=== PATIENT | male | born 1960 | race Caucasian/White ===

== ENCOUNTER 2017-08-12 20:25 | Emergency (ER) | payer MEDICARE, SELFPAY ==
[2017-08-12 20:27] VITALS: BP 152/76; PULSE 93; RESP 18; TEMP 36.8; O2SAT 96; BMI 35.3
--- NOTE | 2017-08-12 21:56 | ED.VISSUMM ---
- ER Visit Summary Date of Service: 08/12/17 Chief Complaint: Gastrostomy tube fell out History of Present Illness: The patient is a 56 M who presents because gastrostomy tube fell out. He is uncertain when it fell out. He noticed it was out when he awoke. He has been waiting approximately an hour in the waiting room prior to being seen. He has no complaints. Physical Examination: Patient's ostomy site is closing. [employer] Lecturer obtained a 20 [place]ian gastric ostomy BRAD tube and urethral sounds. Lungs are clear to auscultation. Heart is regular. Abdomen soft nontender. Test Results: None Emergency Department Course and Treatment: The opening was dilated with urethral sounds. A 20 Guamanian BRAD tube was placed. Treatment Plan: Discharged home with appropriate home-going instructions Disposition: Discharge to home Impression: Placement of BRAD gastrostomy tube This note was generated with [employer] dictation software. It may contain incorrect words, spelling, and punctuation that were not noted in review of the chart prior to signing ED Disposition - Plan for ED Patient: Chief Complaint: Other, Pain/Inj Instructions: ED G Tube Replacement Referrals: [facility] Doctor,Out of [Primary Care Provider] - As Needed
== END 2017-08-12 22:29 | disposition home or self-care (01) ==
PROVIDERS: Emergency Provider Emergency Medicine
DX: Z43.1 Encounter for attention to gastrostomy (principal); K21.9 Gastro-esophageal reflux disease without esophagitis; E78.00 Pure hypercholesterolemia, unspecified; E03.9 Hypothyroidism, unspecified; E66.9 Obesity, unspecified; Z68.35 Body mass index [BMI] 35.0-35.9, adult; Z79.82 Long term (current) use of aspirin; Z79.899 Other long term (current) drug therapy; Z87.891 Personal history of nicotine dependence
CPT/HCPCS: 43760; 99282; A4216

== ENCOUNTER 2021-07-22 16:37 | Emergency (ER) | payer SELFPAY ==
[2021-07-22 16:40] VITALS: BP 96/61; PULSE 105; RESP 18; TEMP 36.6; O2SAT 91; BMI 26.2
[2021-07-22 16:43] VITALS: BP 96/61; PULSE 105; RESP 18; TEMP 36.6; O2SAT 91
--- NOTE | 2021-07-22 18:04 | RAD_ITS ---
EXAM: XR ABDOMEN, 1 VIEW CLINICAL INDICATION: PEG placement -- with gastrographin TECHNIQUE: Frontal supine view of the abdomen/pelvis. This report was created using [employer] report generation technology. COMPARISON: 09.27.16 FINDINGS: LOWER THORAX: No acute pathology. GASTROINTESTINAL TRACT: Unremarkable. Non-obstructive. No bowel or stomach distention. ORGANS: Unremarkable as visualized. No organomegaly. No abnormal calcifications. BONES/JOINTS: No acute pathology. SOFT TISSUES: No acute pathology. TUBES, LINES AND DEVICES: PEG tube in place. Contrast noted in the stomach when administered through the PEG tube. This confirms PEG tube placement. RAD/Abdomen Single View (Portable) IMPRESSION: PEG tube in place. Contrast noted in the stomach when administered through the PEG tube. This confirms PEG tube placement. Electronically Signed: Toni Zavaleta MD at 19:04 EDT ,
--- NOTE | 2021-07-22 18:28 | EX.ED.DYSGE1 ---
HPI History of Present Illness Chief Complaint: Wound Informant: family Narrative Narrative: Patient presents for PEG tube replacement. Patient is on hospice care secondary to cancer. 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 He has a PEG tube. The port where patient receives his tube feeds was cracked this morning. Hospice nurse attempted to change the PEG at home but was unable. [facility] Medical History (Updated 07/22/21 @ 18:[address] 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 Myocardial infarction Home Medications Flucinolone Cream 1 dose TOPICAL BID 09/20/16 [History Last Taken Unknown] Ketoconazole Shampoo 1 dose TOPICAL DAILY 09/20/16 [History Last Taken Unknown] Oxycodone 1 - 2 tab PO 4X/DAY PRN PRN 09/20/16 [History Last Taken Unknown] aspirin 81 mg PO DAILY@0800 09/20/16 [History Last Taken Unknown] atorvastatin 80 mg PO QHS 09/20/16 [History Last Taken Unknown] baclofen 20 mg PO DAILY PRN 09/20/16 [History Last Taken Unknown] diazepam 5 mg PO 4X/DAY PRN PRN 09/20/16 [History Last Taken Unknown] famotidine 20 mg PO BID 09/20/16 [History Last Taken Unknown] levothyroxine 175 mcg PO DAILY 09/20/16 [History Last Taken Unknown] metoprolol tartrate 12.5 mg PO BID 09/20/16 [History Last Taken Unknown] pantoprazole 20 mg PO DAILY 09/20/16 [History Last Taken Unknown] sertraline [Zoloft] 100 mg PO DAILY 09/20/16 [History Last Taken Unknown] Allergy/AdvReac Type Severity Reaction Status Date / Time fentanyl AdvReac Other Verified 08/12/17 20:28 Social History Smoking Status: Never smoker ROS ROS ED ROS Narrative ROS provided by spouse at bedside secondary to patient's baseline aphasia. Constitutional Constitutional ED: Denies chills or fever(s) Respiratory/Chest Respiratory/Chest: Denies cough Gastrointestinal Gastrointestinal: Denies vomiting EXAM Physical Exam Const Vital Signs: 07/22/21 16:40 07/22/21 16:43 07/22/21 19:11 Temperature 97.8 F 97.8 F 98.8 F Temperature Source Temporal Temporal Temporal Pulse Rate 105 H 105 H 98 Respiratory Rate 18 18 19 H Blood Pressure 96/61 96/61 92/69 Blood Pressure Mean 72 72 76 Pulse Ox 91 91 97 Oxygen Delivery Method Room Air Room Air Positive well nourished HEENT HEENT Narrative: Left-sided facial tumors. Chest Wall inspection of chest normal and palpation of chest normal Resp normal respiratory effort and clear to auscultation bilaterally Cardio regular rate and regular rhythm GI non-tender GI Narrative: PEG tube in place. Palpation: soft MDM MDM MDM Narrative Medical decision making narrative: Previous PEG tube is removed. This is replaced with a 18 [place] Morgan catheter as we did not have an 18 [place]an PEG available. X-ray with Gastrografin injection is performed with good placement of the tube. Patient be discharged home with . Radiography Diagnostic Testing: Clinical Impression(s) from Imaging Studies KUB X-Ray 07/22/21 18:04 IMPRESSION: PEG tube in place. Contrast noted in the stomach when administered through the PEG tube. This confirms PEG tube placement. Electronically Signed: Toni Zavaleta MD at 19:04 EDT , Discharge Plan Triage Chief Complaint: Wound ED Provider: Unique Motta Dx/Rx/DC Orders Clinical Impression: PEG tube malfunction Instructions: ED Feeding Tube Replacement Prescriptions: No Action levothyroxine 175 MCG tablet 175 mcg PO DAILY RF: 0 atorvastatin 80 MG tablet 80 mg PO QHS RF: 0 sertraline [Zoloft] 100 MG tablet 100 mg PO DAILY RF: 0 aspirin 81 MG tablet 81 mg PO DAILY@0800 RF: 0 pantoprazole 20 MG tablet 20 mg PO DAILY RF: 0 famotidine 20 MG tablet 20 mg PO BID RF: 0 baclofen 10 MG tablet 20 mg PO DAILY PRN (Reason: Muscle Spasm) RF: 0 diazepam 5 MG tablet 5 mg PO 4X/DAY PRN PRN (Reason: Anxiety) RF: 0 metoprolol tartrate 25 MG tablet 12.5 mg PO BID RF: 0 Flucinolone Cream 1 DOSE 1 dose topical BID RF: 0 Ketoconazole Shampoo 1 DOSE 1 dose topical DAILY RF: 0 Oxycodone 15 MG 1 - 2 tab PO 4X/DAY PRN PRN (Reason: Pain) RF: 0 Primary Care Provider: Pete Dolan Referrals: Pete Dolan, [Primary Care Provider] - Disposition Disposition: Home, Self Care Discharge Date/Time: 07/22/21 20:00
[2021-07-22 19:11] VITALS: BP 92/69; PULSE 98; RESP 19; TEMP 37.1; O2SAT 97
--- NOTE | 2021-07-22 19:49 | ED.RN ---
hospice called to notify patient is being discharged home
== END 2021-07-22 20:00 | disposition home or self-care (01) ==
PROVIDERS: Emergency Provider Emergency Medicine; PCP Family Medicine Hospice and Palliative Medicine; Visit Provider Emergency Medicine
DX: K94.23 Gastrostomy malfunction (principal); C32.9 Malignant neoplasm of larynx, unspecified; E78.00 Pure hypercholesterolemia, unspecified; E03.9 Hypothyroidism, unspecified; F32.A Depression, unspecified; F41.9 Anxiety disorder, unspecified; I25.2 Old myocardial infarction; Z51.5 Encounter for palliative care; Z79.899 Other long term (current) drug therapy; Z79.82 Long term (current) use of aspirin; Z86.73 Personal history of transient ischemic attack (TIA), and cerebral infarction without residual deficits
CPT/HCPCS: 43762; 74018; 99282